=== PATIENT | male | born 1985 | race African-American/Black ===

== ENCOUNTER 2025-03-30 15:06 | Emergency (ER) | payer MEDICAID ==
[~2025-03-30] VITALS: Ht 175.3 cm; Wt 60.0 kg
[2025-03-30 15:25] VITALS: O2SAT 98
[2025-03-30 17:43] VITALS: BP 110/66; PULSE 83; RESP 17; TEMP 36.7; O2SAT 98
== END 2025-03-30 17:44 | disposition home or self-care (01) ==
LOC: ER 15:06
DX: I88.9 Nonspecific lymphadenitis, unspecified (principal); J45.909 Unspecified asthma, uncomplicated
CPT/HCPCS: 99282

== ENCOUNTER 2025-04-08 16:17 | Emergency (ER) | payer MEDICAID ==
[~2025-04-08] VITALS: Ht 175.3 cm; Wt 61.2 kg
[2025-04-08 16:19] VITALS: O2SAT 98
[2025-04-08] MEDS ORDERED: AMOX1TAB16 MT (21:07)
[2025-04-08 21:32] VITALS: BP 103/75; PULSE 61; RESP 18; TEMP 36.7; O2SAT 98
== END 2025-04-08 21:33 | disposition home or self-care (01) ==
LOC: ER 16:17
DX: I89.1 Lymphangitis (principal); J45.909 Unspecified asthma, uncomplicated; Z79.899 Other long term (current) drug therapy; Z98.890 Other specified postprocedural states
CPT/HCPCS: 99283